=== PATIENT | female | born 1960 | race Hispanic/Latino ===

== ENCOUNTER → 2018-02-25 | Outpatient (CLI) | payer MEDICARE ==
[~2018-02-25] MED LIST: ASPI-1012 PO; CARV3.12 PO; FLUO20TA29 PO; GLIM4TAB3 PO; HYDR-2132 PO; LEVO200T10 PO; LEVO25TA54 PO; LOSA1TAB54 PO; MECL25TA3 PO; METF-446 PO; ONDA4TAB4 PO; SIMV20TA6 PO
== END | disposition home or self-care (01) ==
LOC: RAH 16:01
PROVIDERS: ATTEND Nurse Practitioner Family
DX: M25.512 Pain in left shoulder (principal)
CPT/HCPCS: 73030

== ENCOUNTER → 2018-03-02 | Outpatient (CLI) | payer MEDICARE | END | disposition home or self-care (01) | LOC: RAH 13:27 | PROVIDERS: ATTEND Nurse Practitioner Family | DX: R51 Headache (principal); M17.12 Unilateral primary osteoarthritis, left knee; E11.9 Type 2 diabetes mellitus without complications; F32.9 Major depressive disorder, single episode, unspecified; I10 Essential (primary) hypertension | CPT/HCPCS: 70450 ==

== ENCOUNTER → 2018-08-18 | Outpatient (CLI) | payer MEDICARE ==
[2018-08-17 16:17] VITALS: BP 138/64
[~2018-08-18] VITALS: Ht 160 cm; Wt 123.7 kg
[~2018-08-18] MED LIST changes: +CEFAZOLIN 3GM /D5W 100ML 100 ML IV PRN; +CEFAZOLIN SODIUM 1 GM VIAL ONE; +CHOL200059 PO; +DICL2100G TP; -FLUO20TA29 PO; +FLUO40CA49 PO; +GABA-531 PO; -HYDR-2132 PO; +HYDR-4457 PO; +IRON18TA PO; -LEVO25TA54 PO; +LORA1TAB3 PO; +MAGN100T PO; -MECL25TA3 PO; +NEOM28OI21 TP; -ONDA4TAB4 PO; +SODIUM CHLORIDE 0.9% 1000ML 1,000 ML IV ONE; +SULF1TAB3 PO; +TRAM50TA4 PO
[2018-08-18 07:35] VITALS: BP 142/76
[2018-08-18 08:21] LABS: APPEARANCE,URINE Clear (CLEAR); BILIRUBIN,URINE Negative (NEGATIVE); COLOR,URINE Yellow (YELLOW); GLUCOSE, URINE (UA) TRACE mg/dL (NEGATIVE); KETONES,URINE Negative (NEGATIVE); LEUKOCYTE ESTERASE ,URINE Trace (NEGATIVE); NITRATE,URINE Negative (NEGATIVE); OCCULT BLOOD,URINE Negative (NEGATIVE); PROTEIN,URINE Negative (NEGATIVE)
[2018-08-18 08:39] LABS: RBC,URINE 0-1 /HPF (0-1); WBC,URINE 0-1 /HPF (0-1)
[2018-08-18 08:40] LABS: BACTERIA,URINE Few /HPF (None Seen); SQUAMOUS EPITHELIAL CELL,UR Few /HPF (0-2)
--- NOTE | 2018-08-18 08:41 | NUR ---
skin dry scab noted to right knee surrounded with redness, Dr. Wallace at bedside. cancel sx due to abrasion, reason explanied to patient and family , pt will f/u with dr. wallace next week.
--- NOTE | 2018-08-18 08:56 | NUR ---
DC DC INSTRUCTIONS GIVEN TO PT WITH RX, INSTRUCTED TO F/U WITH DR. MASON 08-26- . TO APPLY TOA TO RIGHT KNEE ABRASION DAILY
== END | disposition home or self-care (01) ==
LOC: EDSTATUS 08-17 15:00 → DAHIP 07:09 → UNDOADMIN 07:09 → DAH 10:00
PROVIDERS: ATTEND Orthopaedic Surgery
DX: M17.11 Unilateral primary osteoarthritis, right knee (principal); E11.9 Type 2 diabetes mellitus without complications; Z53.9 Procedure and treatment not carried out, unspecified reason
CPT/HCPCS: 81001; 82948; A4218; J0690; J7030 ×2

== ENCOUNTER → 2018-11-22 | Outpatient (CLI) | payer MEDICARE ==
[~2018-11-22] MED LIST changes: -CEFAZOLIN 3GM /D5W 100ML 100 ML IV PRN; -CEFAZOLIN SODIUM 1 GM VIAL ONE; -DICL2100G TP; -SODIUM CHLORIDE 0.9% 1000ML 1,000 ML IV ONE; -SULF1TAB3 PO; -TRAM50TA4 PO
== END | disposition home or self-care (01) ==
LOC: RAH 10:10
PROVIDERS: ATTEND Nurse Practitioner Family
DX: Z12.31 Encounter for screening mammogram for malignant neoplasm of breast (principal)
CPT/HCPCS: 77067

== ENCOUNTER → 2019-08-18 | Outpatient (CLI) | payer MEDICARE ==
[~2019-08-18] MED LIST changes: -GLIM4TAB3 PO; +GLIM4TAB36 PO; +IOHEXOL-350 50ML VIAL IV ONE; +SIMV-43 PO; -SIMV20TA6 PO
== END | disposition home or self-care (01) ==
LOC: RAH 12:55
PROVIDERS: ATTEND Nurse Practitioner Family
DX: R59.0 Localized enlarged lymph nodes (principal)
CPT/HCPCS: 70492; Q9967

== ENCOUNTER → 2020-08-24 | Outpatient (CLI) | payer MEDICARE ==
[~2020-08-24] MED LIST changes: -IOHEXOL-350 50ML VIAL IV ONE
== END | disposition home or self-care (01) ==
LOC: RAH 13:33
PROVIDERS: ATTEND Nurse Practitioner Family
DX: N64.4 Mastodynia (principal)
CPT/HCPCS: 77066

== ENCOUNTER → 2021-08-28 | Outpatient (CLI) | payer MEDICARE ==
[~2021-08-28] MED LIST changes: -NEOM28OI21 TP; +NEOM28OI48 TP
== END | disposition home or self-care (01) ==
LOC: RAH 08:44
PROVIDERS: ATTEND Nurse Practitioner Family
DX: N64.4 Mastodynia (principal); R92.2 Inconclusive mammogram
CPT/HCPCS: 77066

== ENCOUNTER → 2023-01-27 | Outpatient (CLI) | payer MEDICARE | END | disposition home or self-care (01) | LOC: RAH 09:34 | PROVIDERS: ATTEND Nurse Practitioner Family | DX: R92.2 Inconclusive mammogram (principal); N64.89 Other specified disorders of breast | CPT/HCPCS: 77066 ==

== ENCOUNTER → 2023-02-25 | Outpatient (CLI) | payer OTHER | END | disposition home or self-care (01) | LOC: OIH 10:02 | PROVIDERS: ATTEND Physician Assistant | DX: Z13.6 Encounter for screening for cardiovascular disorders (principal) | CPT/HCPCS: 75571 ==

== ENCOUNTER → 2024-01-22 | Outpatient (CLI) | payer MEDICARE ==
[2024-01-22 21:46] VITALS: PULSE 68; RESP 16
[2024-01-22 22:30] VITALS: PULSE 72; RESP 18
[2024-01-22 23:00] VITALS: PULSE 70; RESP 18
[2024-01-22 23:30] VITALS: PULSE 70; RESP 18
[2024-01-23] VITALS (11 sets, daily range): PULSE 64–70; RESP 4–18
== END | disposition home or self-care (01) ==
LOC: SLP 20:16
PROVIDERS: ATTEND Nurse Practitioner Family
DX: G47.33 Obstructive sleep apnea (adult) (pediatric) (principal)
CPT/HCPCS: 95810

== ENCOUNTER → 2024-01-29 | Outpatient (CLI) | payer MEDICARE | END | disposition home or self-care (01) | LOC: RAH 09:35 | PROVIDERS: ATTEND Nurse Practitioner Family | DX: N64.4 Mastodynia (principal); R92.2 Inconclusive mammogram | CPT/HCPCS: 77066 ==

== ENCOUNTER → 2024-01-29 | Outpatient (CLI) | payer MEDICARE ==
[2024-01-29 21:24] VITALS: PULSE 68; RESP 18
[2024-01-29 22:00] VITALS: PULSE 58; RESP 14
[2024-01-29 22:30] VITALS: PULSE 58; RESP 14
[2024-01-29 23:00] VITALS: PULSE 58; RESP 14
[2024-01-29 23:30] VITALS: PULSE 68; RESP 12
[2024-01-30] VITALS (11 sets, daily range): PULSE 52–60; RESP 12–16
== END | disposition home or self-care (01) ==
LOC: SLP 20:06
PROVIDERS: ATTEND Nurse Practitioner Family
DX: G47.33 Obstructive sleep apnea (adult) (pediatric) (principal); R09.02 Hypoxemia
CPT/HCPCS: 95811

== ENCOUNTER → 2025-04-06 | Outpatient (CLI) | payer MEDICARE | END | disposition home or self-care (01) | LOC: RAH 14:31 | PROVIDERS: ATTEND Nurse Practitioner Family | DX: Z12.31 Encounter for screening mammogram for malignant neoplasm of breast (principal) | CPT/HCPCS: 77067 ==